=== PATIENT | male | born 1990 | race Caucasian/White ===

== ENCOUNTER 2019-02-12 12:56 | Emergency (ER) | payer OTHER ==
--- NOTE | 2019-02-12 13:02 | ER Report ---
History and Physical Time Seen By MD: 13:01 HPI/ROS CHIEF COMPLAINT: Right-sided abdominal pain HISTORY OF PRESENT ILLNESS: Patient is a 28-year-old male here with complaints of intermittent right sided and right lower abdominal pain has been present for the past several weeks. Patient reports worsening pain with defecation, denies alleviating factors, does admit to nausea without vomiting. Denies dark stools or blood stools. Patient does have a history of GERD currently on a proton pump inhibitor. Patient is afebrile, hemodynamically stable at time of evaluation. REVIEW OF SYSTEMS: Constitutional: No fever, no chills. Eyes: No discharge. ENT: No sore throat. Cardiovascular: No chest pain, no palpitations. Respiratory: No cough, no shortness of breath. Gastrointestinal: + right upper and lower abdominal pain, no vomiting, + nausea Genitourinary: No hematuria. Musculoskeletal: No back pain. Skin: No rashes. Neurological: No headache. Allergies: Coded Allergies: No Known Drug Allergies (Unverified , 02/12/19) Home Meds Reported Medications Amitriptyline Hcl (AMITRIPTYLINE HCL) 10 Mg Tablet, 10 MG PO QHS, #5 TAB 02/12/19 Pantoprazole Sodium (PANTOPRAZOLE SODIUM) 40 Mg Tablet.dr, 40 MG PO QDAY, TAB.SR 02/12/19 Constitutional Physical Exam General Appearance: The patient is alert, has no immediate need for airway protection and no signs of toxicity. Uncomfortable appearing Eyes: Pupils equal and round no pallor or injection. ENT, Mouth: Mucous membranes are moist. Respiratory: There are no retractions, lungs are clear to auscultation. Cardiovascular: Regular rate and rhythm. Gastrointestinal: + TTP of right abdomen without rebound or guarding Neurological: No focal deficits Skin: Warm and dry, no rashes. Musculoskeletal: Neck is supple non tender. Extremities are nontender, nonswollen and have full range of motion. DIFFERENTIAL DIAGNOSIS: After history and physical exam differential diagnosis was considered for abdominal pain including but not limited to appendicitis, cholecystitis, gastritis and urinary tract infection. Medical Decision Making Data Points Laboratory Hematology Test 02/12/19 13:06 02/12/19 13:17 Urine Color Yellow Urine Clarity Slightly-cloudy Urine pH 7.0 pH (4.8-9.5) Urine Specific Eunice 1.023 Urine Protein Negative mg/dL (NEGATIVE) Urine Glucose (UA) Negative mg/dL (NEGATIVE) Urine Ketones Negative mg/dL (NEGATIVE) Urine Blood Negative (NEGATIVE) Urine Nitrite Negative (NEGATIVE) Urine Bilirubin Negative (NEGATIVE) Urine Urobilinogen Negative mg/dL (0.2-1.9) Urine Leukocyte Esterase Negative (NEGATIVE) Urine RBC <1 /HPF (0-2/HPF) Urine WBC 1 /HPF (0-5/HPF) Urine Squamous Epithelial Cells None /LPF (</=FEW) Urine Bacteria Negative /HPF (NONE-FEW) Urine Mucus Few /HPF (NONE-FEW) Red Blood Count 5.77 M/uL (4.00-5.60) Mean Corpuscular Volume 89.5 fL (80.0-96.0) Mean Corpuscular Hemoglobin 31.0 pg (26.0-33.0) Mean Corpuscular Hemoglobin Concent 34.7 g/dL (32.0-36.0) Red Cell Distribution Width 12.8 % (11.5-14.5) Mean Platelet Volume 9.5 fL (7.2-11.1) Neutrophils (%) (Auto) 57.4 % (39.4-72.5) Lymphocytes (%) (Auto) 33.1 % (17.6-49.6) Monocytes (%) (Auto) 7.5 % (4.1-12.4) Eosinophils (%) (Auto) 1.2 % (0.4-6.7) Basophils (%) (Auto) 0.8 % (0.3-1.4) Nucleated RBC Relative Count (auto) 0.1 /100WBC Neutrophils # (Auto) 4.4 K/uL (2.0-7.4) Lymphocytes # (Auto) 2.5 K/uL (1.3-3.6) Monocytes # (Auto) 0.6 K/uL (0.3-1.0) Eosinophils # (Auto) 0.1 K/uL (0.0-0.5) Basophils # (Auto) 0.1 K/uL (0.0-0.1) Nucleated RBC Absolute Count (auto) 0.01 K/uL Prothrombin Time 13.6 seconds (12.0-14.4) Prothromb Time International Ratio 1.04 Activated Partial Thromboplast Time 30 seconds (23-35) Sodium Level 140 mmol/L (137-145) Potassium Level 3.6 mmol/L (3.5-5.0) Chloride Level 105 mmol/L (98-107) Carbon Dioxide Level 24 mmol/L (22-30) Blood Urea Nitrogen 13 mg/dl (9-21) Creatinine 1.20 mg/dl (0.66-1.25) Glomerular Filtration Rate Calc > 60.0 Random Glucose 135 mg/dl (75-110) Lactate 1.7 mmol/L (0.7-2.1) Calcium Level 9.7 mg/dl (8.4-10.2) Total Bilirubin 0.9 mg/dl (0.2-1.3) Aspartate Amino Transf (AST/SGOT) 35 U/L (0-35) Alanine Aminotransferase (ALT/SGPT) 97 U/L (0-56) Alkaline Phosphatase 67 U/L (0-126) C-Reactive Protein < 0.5 mg/dl (<1.0) Total Protein 7.7 g/dl (6.3-8.2) Albumin 4.7 g/dl (3.5-5.0) Lipase 98 U/L (23-300) Chemistry Test 02/12/19 13:06 02/12/19 13:17 Urine Color Yellow Urine Clarity Slightly-cloudy Urine pH 7.0 pH (4.8-9.5) Urine Specific Eunice 1.023 Urine Protein Negative mg/dL (NEGATIVE) Urine Glucose (UA) Negative mg/dL (NEGATIVE) Urine Ketones Negative mg/dL (NEGATIVE) Urine Blood Negative (NEGATIVE) Urine Nitrite Negative (NEGATIVE) Urine Bilirubin Negative (NEGATIVE) Urine Urobilinogen Negative mg/dL (0.2-1.9) Urine Leukocyte Esterase Negative (NEGATIVE) Urine RBC <1 /HPF (0-2/HPF) Urine WBC 1 /HPF (0-5/HPF) Urine Squamous Epithelial Cells None /LPF (</=FEW) Urine Bacteria Negative /HPF (NONE-FEW) Urine Mucus Few /HPF (NONE-FEW) White Blood Count 7.6 k/uL (4.5-11.0) Red Blood Count 5.77 M/uL (4.00-5.60) Hemoglobin 17.9 g/dL (14.0-18.0) Hematocrit 51.7 % (42.0-52.0) Mean Corpuscular Volume 89.5 fL (80.0-96.0) Mean Corpuscular Hemoglobin 31.0 pg (26.0-33.0) Mean Corpuscular Hemoglobin Concent 34.7 g/dL (32.0-36.0) Red Cell Distribution Width 12.8 % (11.5-14.5) Platelet Count 281 K/uL (150-450) Mean Platelet Volume 9.5 fL (7.2-11.1) Neutrophils (%) (Auto) 57.4 % (39.4-72.5) Lymphocytes (%) (Auto) 33.1 % (17.6-49.6) Monocytes (%) (Auto) 7.5 % (4.1-12.4) Eosinophils (%) (Auto) 1.2 % (0.4-6.7) Basophils (%) (Auto) 0.8 % (0.3-1.4) Nucleated RBC Relative Count (auto) 0.1 /100WBC Neutrophils # (Auto) 4.4 K/uL (2.0-7.4) Lymphocytes # (Auto) 2.5 K/uL (1.3-3.6) Monocytes # (Auto) 0.6 K/uL (0.3-1.0) Eosinophils # (Auto) 0.1 K/uL (0.0-0.5) Basophils # (Auto) 0.1 K/uL (0.0-0.1) Nucleated RBC Absolute Count (auto) 0.01 K/uL Prothrombin Time 13.6 seconds (12.0-14.4) Prothromb Time International Ratio 1.04 Activated Partial Thromboplast Time 30 seconds (23-35) Glomerular Filtration Rate Calc > 60.0 Lactate 1.7 mmol/L (0.7-2.1) Calcium Level 9.7 mg/dl (8.4-10.2) Total Bilirubin 0.9 mg/dl (0.2-1.3) Aspartate Amino Transf (AST/SGOT) 35 U/L (0-35) Alanine Aminotransferase (ALT/SGPT) 97 U/L (0-56) Alkaline Phosphatase 67 U/L (0-126) C-Reactive Protein < 0.5 mg/dl (<1.0) Total Protein 7.7 g/dl (6.3-8.2) Albumin 4.7 g/dl (3.5-5.0) Lipase 98 U/L (23-300) Coagulation Test 02/12/19 13:17 Prothrombin Time 13.6 seconds Prothromb Time International Ratio 1.04 Activated Partial Thromboplast Time 30 seconds Urinalysis Test 02/12/19 13:06 Urine Color Yellow Urine Clarity Slightly-cloudy Urine pH 7.0 pH (4.8-9.5) Urine Specific Eunice 1.023 Urine Protein Negative mg/dL (NEGATIVE) Urine Glucose (UA) Negative mg/dL (NEGATIVE) Urine Ketones Negative mg/dL (NEGATIVE) Urine Blood Negative (NEGATIVE) Urine Nitrite Negative (NEGATIVE) Urine Bilirubin Negative (NEGATIVE) Urine Urobilinogen Negative mg/dL (0.2-1.9) Urine Leukocyte Esterase Negative (NEGATIVE) Urine RBC <1 /HPF (0-2/HPF) Urine WBC 1 /HPF (0-5/HPF) Urine Squamous Epithelial Cells None /LPF (</=FEW) Urine Bacteria Negative /HPF (NONE-FEW) Urine Mucus Few /HPF (NONE-FEW) EKG/Imaging Imaging PATIENT NAME: Jani Amaral : 1990 MR: [id number] V: [id number] EXAM DATE: ORDERING PHYSICIAN: KRISHNA GRIFFIN TECHNOLOGIST: Location: [facility] [place] Patient: Jani Amaral : 1990 Visit/Account:[id number] Date of Sevice: 02/12/2019 EXAMINATION: CT abdomen with IV contrast CT pelvis with IV contrast HISTORY: Right-sided abdominal pain for three weeks. COMPARISON: None. TECHNIQUE: Axial images were taken through the abdomen and pelvis with intravenous contrast. Sagittal and coronal reformatted images are also submitted. CONTRAST: 75 mL of IV Isovue-370 One of the following dose optimization techniques was utilized in the performance of this exam: Automated exposure control; adjustment of the mA and/or kV according to the patient's size; or use of an iterative reconstruction technique. Specific details can be referenced in the facility's radiology CT exam operational policy. FINDINGS: Liver/biliary: Negative. Pancreas: Negative. Spleen: Negative. Adrenal glands: A 1.8 cm nodule in the right adrenal gland. Kidneys: A subcentimeter cyst in the mid left kidney. Pelvic structures: Negative. Bowel: The bowel is normal caliber without obvious focal wall thickening. The appendix is normal. Peritoneum/retroperitoneum/mesenteries: Negative. No intraperitoneal free air or free fluid. Vessels: Negative. Musculoskeletal/body wall: Mild disc degenerative changes in the lower lumbar spine. Lymph node assessment: Negative. Lower chest: Negative. IMPRESSION: No CT evidence of acute pathology in the abdomen or pelvis. An incidental 1.8 cm nodule in the right adrenal gland with indeterminate imagi ng features. Please see management recommendations below. MANAGEMENT OF INCIDENTAL ADRENAL MASSES Diagnostic Benign Imaging Features * Myelolipoma, no enhancement or calcification ? Benign, no follow-up * <10 HU, signal loss on fat suppressed or opposed-phase ? Benign adenoma, no follow-up Indeterminate Imaging Features >/= 4 cm * No Cancer Hx ? Consider resection * Cancer Hx ? Consider PET/CT or Bx if appropriate w/ Prior Imaging Stable >1 year ? Benign, no follow-up New or enlarging * No Cancer Hx: Consider follow-up adrenal CT or resection * Cancer Hx: Consider PET/CT or Bx w/out Prior Imaging and No Cancer Hx * 1-2 cm: Probably benign; Consider 12-month follow-up adrenal CT * >2 to <4 cm: Adrenal CT w/out Prior Imaging but Cancer Hx and Isolated Adrenal Mass * Adrenal CT Maximino Soto et al. Management of Incidental Adrenal Masses: A White Paper of the ACR Incidental Findings Committee. Journal of the [employer] [employer] 2017. [facility] ED Course/Re-evaluation ED Course Patient is a 28-year-old male here with complaints of right-sided abdominal pain which is been intermittent for past several weeks. Labs were found to be unremarkable with no leukocytosis, electrolytes are stable. CT imaging of the abdomen and pelvis showed no acute intra-abdominal findings however patient was notified that he had an incidental cyst on his adrenal gland which will need to be followed up in the future. Return precautions provided, close PCP follow-up recommended. Decision to Disposition Date: Feb 12, 2019 Decision to Disposition Time: 14:32 Depart Departure Latest Vital Signs Impression: Primary Impression: Abdominal pain Condition: Improved Disposition: HOME OR SELF-CARE Patient Instructions: Abdominal Pain (ED) Additional Instructions: Please drink plenty of water. You had moderate stool burden, consider taking stool softeners were MiraLAX. Please follow-up with your family doctor in the next 3-5 days. Please return promptly if you develop blood in the stools or urine, fevers, worsening abdominal pain, inability to keep down food or fluids. Please follow-up with your primary care provider in order to discuss possible need for follow-up imaging of the and incidental adrenal gland lesion. KRISHNA GRIFFIN DO Feb 12, 2019 13:01
[2019-02-12] MEDS ORDERED: AMIT-104 PO (13:13)
[2019-02-12] MEDS ORDERED: PANT40TA65 PO (13:13)
[2019-02-12] MEDS ORDERED: NS(*) 0.9% 1000 ML BAG 1,000 ML IV ONE (13:19)
[2019-02-12 13:27] LABS: PLATELET COUNT, AUTOMATED 281 K/uL (150-450)
[2019-02-12] MEDS ORDERED: IOPAMIDOL 76% 150 ML INFUS BTL 150 ML ONE (13:34)
[2019-02-12 13:41] LABS: INR 1.04
[2019-02-12 14:00] VITALS: BP 122/81
--- NOTE | 2019-02-12 14:30 | RADIOLOGY IMAGING REPORT ---
FACILITY: [facility] [place] PATIENT NAME: Jani Amaral : 1990 MR: [id number] V: [id number] EXAM DATE: ORDERING PHYSICIAN: KRISHNA GRIFFIN TECHNOLOGIST: Location: [facility] Patient: Jani Amaral : 1990 Visit/Account:[id number] Date of Sevice: 02/12/2019 EXAMINATION: CT abdomen with IV contrast CT pelvis with IV contrast HISTORY: Right-sided abdominal pain for three weeks. COMPARISON: None. TECHNIQUE: Axial images were taken through the abdomen and pelvis with intravenous contrast. Sagitt al and coronal reformatted images are also submitted. CONTRAST: 75 mL of IV Isovue-370 One of the following dose optimization techniques was utilized in the performance of this exam: Autom ated exposure control; adjustment of the mA and/or kV according to the patient's size; or use of an i terative reconstruction technique. Specific details can be referenced in the facility's radiology C T exam operational policy. FINDINGS: Liver/biliary: Negative. Pancreas: Negative. Spleen: Negative. Adrenal glands: A 1.8 cm nodule in the right adrenal gland. Kidneys: A subcentimeter cyst in the mid left kidney. Pelvic structures: Negative. Bowel: The bowel is normal caliber without obvious focal wall thickening. The appendix is normal. Peritoneum/retroperitoneum/mesenteries: Negative. No intraperitoneal free air or free fluid. Vessels: Negative. Musculoskeletal/body wall: Mild disc degenerative changes in the lower lumbar spine. Lymph node assessment: Negative. Lower chest: Negative. IMPRESSION: No CT evidence of acute pathology in the abdomen or pelvis. An incidental 1.8 cm nodule in the right adrenal gland with indeterminate imaging features. Please s ee management recommendations below. MANAGEMENT OF INCIDENTAL ADRENAL MASSES Diagnostic Benign Imaging Features * Myelolipoma, no enhancement or calcification ? Benign, no follow-up * <10 HU, signal loss on fat suppressed or opposed-phase ? Benign adenoma, no follow-up Indeterminate Imaging Features >/= 4 cm * No Cancer Hx ? Consider resection * Cancer Hx ? Consider PET/CT or Bx if appropriate w/ Prior Imaging Stable >1 year ? Benign, no follow-up New or enlarging * No Cancer Hx: Consider follow-up adrenal CT or resection * Cancer Hx: Consider PET/CT or Bx w/out Prior Imaging and No Cancer Hx * 1-2 cm: Probably benign; Consider 12-month follow-up adrenal CT * >2 to <4 cm: Adrenal CT w/out Prior Imaging but Cancer Hx and Isolated Adrenal Mass * Adrenal CT Maximino Soto et al. Management of Incidental Adrenal Masses: A White Paper of the ACR Inci dental Findings Committee. Journal of the [place] [employer] 2017. [facility] Report Dictated By: Jesús Lorenzo MD at 02/12/2019 2:03 PM Report E-Signed By: Jesús Lorenzo MD at 02/12/2019 2:25 PM WSN:[email or web address]
== END 2019-02-12 14:46 | disposition home or self-care (01) ==
LOC: ER 13:21
DX: R10.31 Right lower quadrant pain (principal)
CPT/HCPCS: 74177; 81001; 83605; 83690; 85025; 85610; 85730; 86140; 96360; 99284; J7030; Q9967; 82040; 82247; 82310; 82374; 82435; 82565; 82947; 84075; 84132; 84155; 84295; 84450; 84460; 84520

== ENCOUNTER 2019-02-21 12:23 | Emergency (ER) | payer OTHER ==
[~2019-02-21 12:23] MED LIST: AMIT-104 PO; PANT40TA65 PO
--- NOTE | 2019-02-21 12:32 | ER Report ---
History and Physical Time Seen By MD: 12:32 HPI/ROS CHIEF COMPLAINT: Coughing up blood HISTORY OF PRESENT ILLNESS: This is a 28-year-old male presents emergency department for coughing up blood. Patient states that he has had pain on the right side of his throat for the last one to 2 years, has seen several different providers, placed on antibiotics and most recently prednisone. Patient states that he has intermittent episodes after yelling where he cough up blood, not large quantities he notes that just red streaks in his phlegm. He does state that the right side of his throat is sore and it feels as though he is "breathing through a straw". Patient states he does have Adams's esophagus, is not a heavy drinker in fact has not had anything to drink over the last 4-6 months. He states that he has a family history of Adams's esophagus. He does not smoke. Also has a history of acid reflux. He denies fevers or chills. No nausea or vomiting. Has had diarrhea recently took a stool softener and then was on antibiotics. REVIEW OF SYSTEMS: Constitutional: No fever, no chills. Eyes: No discharge. ENT: As above. Cardiovascular: No chest pain, no palpitations. Respiratory: No cough, no shortness of breath. Gastrointestinal: No abdominal pain, no vomiting. Genitourinary: No hematuria. Musculoskeletal: No back pain. Skin: No rashes. Neurological: No headache. Allergies: Coded Allergies: No Known Drug Allergies (Unverified , 02/12/19) Home Meds Reported Medications Amitriptyline Hcl (AMITRIPTYLINE HCL) 10 Mg Tablet, 10 MG PO QHS, #5 TAB 02/12/19 Pantoprazole Sodium (PANTOPRAZOLE SODIUM) 40 Mg Tablet.dr, 40 MG PO QDAY, TAB.SR 02/12/19 Past Medical/Surgical History The patient has a past medical and surgical history of Adams's esophagus, removal of benign tumor on leg, precancerous small removed from left forearm. Reviewed Nurses Notes: Yes Hx Substance Use Disorder: No Hx Alcohol Use: No Constitutional Vital Sign - Last 24 Hours 02/21/19 02/21/19 02/21/19 02/21/19 12:29 12:30 13:00 13:30 Temp 98.5 Pulse 121 116 105 104 Resp 16 B/P (MAP) 144/100 Pulse Ox 95 96 94 91 O2 Delivery Room Air 02/21/19 02/21/19 14:00 14:24 Pulse 100 B/P (MAP) 122/78 (93) Pulse Ox 94 Physical Exam General Appearance: The patient is alert, has no immediate need for airway protection and no signs of toxicity. Eyes: Pupils equal and round no pallor or injection. ENT, Mouth: Mucous membranes are moist. Respiratory: There are no retractions, lungs are clear to auscultation. Cardiovascular: Regular rate and rhythm. No murmurs, clicks or rubs. Gastrointestinal: Abdomen is soft and non tender, no masses, bowel sounds normal. Neurological: Alert and oriented 4. Moving all her studies. Following all commands. No focal neuro deficits. Skin: Warm and dry, no rashes. Musculoskeletal: Neck is supple non tender. Extremities are nontender, nonswollen and have full range of motion. DIFFERENTIAL DIAGNOSIS: After history and physical exam differential diagnosis was considered for Adams's esophagus, laryngospasm, tumor, thyroid cancer, strep throat, mono. Medical Decision Making EKG/Imaging Imaging PATIENT NAME: Jani Amaral : 1990 MR: [id number] V: [id number] EXAM DATE: ORDERING PHYSICIAN: HIRAM LAING TECHNOLOGIST: Location: [facility] Patient: Jani Amaral : 1990 Visit/Account:[id number] Date of Sevice: 02/21/2019 EXAMINATION: CT neck with IV contrast HISTORY: Evaluate for mass on the right TECHNIQUE: CT was obtained through the neck following IV contrast admin istration. Sagittal and coronal reformatted images were generated. 75 mL of IV Isovue-370 injected. One of the following dose optimization techniques was utilized in the performance of this exam: automated exposure control; adjustment of the mA and/or kV according to patient size; or use of iterative reconstruction technique. Specific details can be referenced in the facility's radiology CT exam operational policy. COMPARISON: None. FINDINGS: Parotid/submandibular and thyroid glands: Normal. The BB marker localizing the site of concern in the right upper neck is positioned just inferior to the right submandibular gland. Pharyngeal and retropharyngeal soft tissues: Normal. Oral cavity and oil well shooter space soft tissues: Normal. Larynx/glottis and airway: Normal. Lymph nodes: Normal. Vessels: No significant finding. Visualized orbits / brain: No significant finding. Upper chest: Normal. Bones/sinuses/mastoid air cells: Normal. IMPRESSION: Normal neck CT without mass or adenopathy. No acute finding. The BB marker localizing the site of concern is positioned just inferior to the right submandibular gland which appears normal. Report Dictated By: Radames Jean MD at 02/21/2019 1:51 PM Report E-Signed By: Radames Jean MD at 02/21/2019 1:56 PM WSN:[email or web address] ED Course/Re-evaluation Clinical Indication for ER IV: IV Access ED Course The patient was admitted to room. A history and physical were obtained. Differential diagnoses were considered. A CT of the neck was negative for any acute pathology, specifically no mass in the neck. I did review the results with the patient. This patient had very mild hemoptysis, I did recommend following up with ENT as scheduled next week, also following up with Dr. Melvin for reevaluation of his hernia and possible repeat upper endoscopy. Patient had upper done a couple of months ago on the [facility]. Has since then relocated to [place]. Patient has expressed understanding, was agreeable with this plan of care and discharged home. Patient states he did feel relieved there was no identifiable mass in his neck. Decision to Disposition Date: February 21, 2019 Decision to Disposition Time: 14:18 Depart Departure Latest Vital Signs Vital Signs Date Time Temp Pulse Resp B/P (MAP) Pulse Ox O2 Delivery O2 Flow Rate FiO2 02/21/19 14:24 122/78 (93) 02/21/19 14:00 100 94 02/21/19 12:29 98.5 16 Room Air Impression: Primary Impression: Hemoptysis Condition: Improved Disposition: HOME OR SELF-CARE Referrals: JOSAFAT MELVIN JR,DANIKA Carlson MD Patient Instructions: Hemoptysis (ED) Additional Instructions: There were no concerning findings on the CT of your neck today, please keep your appointment scheduled with Dr. Canas's office next week. Please follow-up with Dr. Melvin, the general surgeon for possible upper endoscopy and discussion on the hiatal hernia. Please avoid things such as ibuprofen or NSAIDs. Continue taking her regular medications. Take Tylenol as needed for pain. Be sure to drink plenty of water. Get plenty of rest. Return to the ER for any concerns worsening symptoms. HIRAM LIANG-BC February 21, 2019 12:32
[2019-02-21] MEDS ORDERED: IOPAMIDOL 76% 150 ML INFUS BTL 150 ML ONE (13:22)
--- NOTE | 2019-02-21 14:01 | RADIOLOGY IMAGING REPORT ---
FACILITY: [facility] [place] PATIENT NAME: Jani Amaral : 1990 MR: [id number] V: [id number] EXAM DATE: ORDERING PHYSICIAN: HIRAM LIANG TECHNOLOGIST: Location: [facility] [place] Patient: Jani Amaral : 1990 Visit/Account:[id number] Date of Sevice: 02/21/2019 EXAMINATION: CT neck with IV contrast HISTORY: Evaluate for mass on the right TECHNIQUE: CT was obtained through the neck following IV contrast administration. Sagittal and co albino reformatted images were generated. 75 mL of IV Isovue-370 injected. One of the following dose optimization techniques was utilized in the performance of this exam: autom ated exposure control; adjustment of the mA and/or kV according to patient size; or use of iterative reconstruction technique. Specific details can be referenced in the facility's radiology CT exam ope rational policy. COMPARISON: None. FINDINGS: Parotid/submandibular and thyroid glands: Normal. The BB marker localizing the site of concern in th e right upper neck is positioned just inferior to the right submandibular gland. Pharyngeal and retropharyngeal soft tissues: Normal. Oral cavity and subassembly supervisor space soft tissues: Normal. Larynx/glottis and airway: Normal. Lymph nodes: Normal. Vessels: No significant finding. Visualized orbits / brain: No significant finding. Upper chest: Normal. Bones/sinuses/mastoid air cells: Normal. IMPRESSION: Normal neck CT without mass or adenopathy. No acute finding. The BB marker localizing the site of concern is positioned just inferior to the right submandibular g land which appears normal. Report Dictated By: Radames Jean MD at 02/21/2019 1:51 PM Report E-Signed By: Radames Jean MD at 02/21/2019 1:56 PM WSN:[email or web address]
[2019-02-21 14:24] VITALS: BP 122/78
[2019-02-25] MEDS ORDERED: CEFPR500PT PO (11:00)
[2019-02-25] MEDS ORDERED: METH4TAB66 PO (11:00)
== END 2019-02-21 14:23 | disposition home or self-care (01) ==
LOC: ER 12:29
DX: R04.2 Hemoptysis (principal)
CPT/HCPCS: 70491; 99284; Q9967

== ENCOUNTER 2019-03-13 15:00 | Emergency (ER) | payer MEDICAID ==
[~2019-03-13 15:00] MED LIST changes: +CEFPR500PT PO; +METH4TAB66 PO
[2019-03-13] MEDS ORDERED: CIPR-344 PO (15:04)
--- NOTE | 2019-03-13 15:10 | ER Report ---
History and Physical Time Seen By MD: 15:10 Hx. of Stated Complaint: PT HAS RLQ PAININTERMITTANTLY GETTING GRAD WORSE FOR A FEW WEEKS. SCHEDULED FOR UGI ABND COLONOSCOPY HPI/ROS CHIEF COMPLAINT: Right-sided groin pain and pain to the testicle HISTORY OF PRESENT ILLNESS: 28-year-old male patient presents to emergency room with complaint of right-sided groin pain and pain into the testicle. Patient states that seems to start in the right inguinal area, then radiates down to the testicle. States his testicle is tender and has discomfort with palpation or walking in the testicle brushes up against his leg. Patient denies any fevers, chills, nausea, vomiting or diarrhea. He does have a history of epididymitis. States he is not taking any thing for the pain. Patient states that seemed to start a couple weeks ago and has progressively worsened since then. Patient states that he has pain down by his tailbone, but this does not seem to be related. He is scheduled for an upper endoscopy as well as colonoscopy next week. REVIEW OF SYSTEMS: Respiratory: No cough, no dyspnea. Cardiovascular: No chest pain, no palpitations. Gastrointestinal: No vomiting, no abdominal pain. Musculoskeletal: No back pain. Allergies: Coded Allergies: No Known Drug Allergies (Unverified , 02/25/19) Home Meds Active Scripts Hydrocodone Bit/Acetaminophen (HYDROCODON-ACETAMINOPHEN 5-325) 1 Each Tablet, 1 EACH PO Q4-6H PRN for PAIN, #8 TAB Prov:VENICE BEEP 03/13/19 Sulfamethoxazole/Trimet 800-160 Mg Tab (BACTRIM DS TABLET) 1 Each Tablet, 1 TAB PO Q12H, #20 TAB Prov:VENICE BEE 03/13/19 Ciprofloxacin Hcl 500 Mg Tab (CIPRO 500 MG TAB) 500 Mg Tablet, 500 MG PO BID for 7 Days, #14 TAB 0 Refills Prov:CINTIA LOPEZ PA-C 03/13/19 Methylprednisolone (METHYLPREDNISOLONE) 4 Mg Tab.ds.pk, 4 MG PO DIRECTED for 6 Days, #1 PACK 0 Refills Prov:CINTIA LOPEZ PA-C 02/25/19 Cefprozil (CEFPROZIL) 500 Mg Tab, 500 MG PO BID for 14 Days, #28 TAB 0 Refills Prov:CINTIA LOPEZ PA-C 02/25/19 Reported Medications Amitriptyline Hcl (AMITRIPTYLINE HCL) 10 Mg Tablet, 10 MG PO QHS, #5 TAB 02/12/19 Pantoprazole Sodium (PANTOPRAZOLE SODIUM) 40 Mg Tablet.dr, 40 MG PO QDAY, TAB.SR 02/12/19 Past Medical/Surgical History Patient has a past medical history of Adams's esophagitis, reflux, prostate cancer. Patient has a surgical history of removal of benign leg tumor, removal of precancerous mole from left forearm. Patient has a family medical history of cancer. Reviewed Nurses Notes: Yes Hx Substance Use Disorder: No Hx Alcohol Use: No Constitutional Vital Sign - Last 24 Hours 03/13/19 03/13/19 03/13/19 03/13/19 15:03 15:08 15:30 15:35 Temp 98.3 Pulse 92 88 85 Resp 20 B/P (MAP) 137/96 137/96 (110) 127/82 (97) Pulse Ox 94 93 92 O2 Delivery Room Air 03/13/19 03/13/19 03/13/19 03/13/19 16:00 16:05 16:30 16:35 Pulse 89 77 B/P (MAP) 110/71 (84) 129/77 (94) Pulse Ox 98 92 03/13/19 03/13/19 03/13/19 03/13/19 17:00 17:10 17:30 17:40 Pulse 83 75 B/P (MAP) 143/95 (111) 140/83 (102) Pulse Ox 94 94 03/13/19 03/13/19 03/13/19 18:00 18:10 18:30 Pulse 87 B/P (MAP) 133/75 (94) 144/79 (100) Pulse Ox 96 Physical Exam General Appearance: The patient is alert, has no immediate need for airway protection and no current signs of toxicity. Respiratory: Chest is non tender, lungs are clear to auscultation. Cardiac: regular rate and rhythm Gastrointestinal: Abdomen is soft and non tender, no masses, bowel sounds normal. Musculoskeletal: Neck: Neck is supple and non tender. Extremities have full range of motion and are non tender. Skin: No rashes or lesions. : Patient does have tenderness to the right testicle, seems worse along the epididymis. Patient does have some enlarged lymph nodes in the right inguinal area. DIFFERENTIAL DIAGNOSIS: After history and physical exam differential diagnosis was considered for epididymitis, testicular torsion. Medical Decision Making Data Points Result Diagram: 03/13/19 1538 03/13/19 1538 Laboratory Hematology Test 03/13/19 15:38 Red Blood Count 5.73 M/uL (4.00-5.60) Mean Corpuscular Volume 90.7 fL (80.0-96.0) Mean Corpuscular Hemoglobin 31.0 pg (26.0-33.0) Mean Corpuscular Hemoglobin Concent 34.2 g/dL (32.0-36.0) Red Cell Distribution Width 12.6 % (11.5-14.5) Mean Platelet Volume 10.0 fL (7.2-11.1) Neutrophils (%) (Auto) 63.8 % (39.4-72.5) Lymphocytes (%) (Auto) 25.3 % (17.6-49.6) Monocytes (%) (Auto) 8.4 % (4.1-12.4) Eosinophils (%) (Auto) 1.8 % (0.4-6.7) Basophils (%) (Auto) 0.7 % (0.3-1.4) Nucleated RBC Relative Count (auto) 0.0 /100WBC Neutrophils # (Auto) 5.8 K/uL (2.0-7.4) Lymphocytes # (Auto) 2.3 K/uL (1.3-3.6) Monocytes # (Auto) 0.8 K/uL (0.3-1.0) Eosinophils # (Auto) 0.2 K/uL (0.0-0.5) Basophils # (Auto) 0.1 K/uL (0.0-0.1) Nucleated RBC Absolute Count (auto) 0.00 K/uL Sodium Level 136 mmol/L (137-145) Potassium Level 3.8 mmol/L (3.5-5.0) Chloride Level 106 mmol/L (98-107) Carbon Dioxide Level 22 mmol/L (22-30) Blood Urea Nitrogen 14 mg/dl (9-21) Creatinine 1.10 mg/dl (0.66-1.25) Glomerular Filtration Rate Calc > 60.0 Random Glucose 105 mg/dl (75-110) Calcium Level 9.2 mg/dl (8.4-10.2) Total Bilirubin 0.5 mg/dl (0.2-1.3) Aspartate Amino Transf (AST/SGOT) 28 U/L (0-35) Alanine Aminotransferase (ALT/SGPT) 62 U/L (0-56) Alkaline Phosphatase 77 U/L (0-126) C-Reactive Protein < 0.5 mg/dl (<1.0) Total Protein 7.4 g/dl (6.3-8.2) Albumin 4.6 g/dl (3.5-5.0) Chemistry Test 03/13/19 15:38 White Blood Count 9.1 k/uL (4.5-11.0) Red Blood Count 5.73 M/uL (4.00-5.60) Hemoglobin 17.7 g/dL (14.0-18.0) Hematocrit 51.9 % (42.0-52.0) Mean Corpuscular Volume 90.7 fL (80.0-96.0) Mean Corpuscular Hemoglobin 31.0 pg (26.0-33.0) Mean Corpuscular Hemoglobin Concent 34.2 g/dL (32.0-36.0) Red Cell Distribution Width 12.6 % (11.5-14.5) Platelet Count 268 K/uL (150-450) Mean Platelet Volume 10.0 fL (7.2-11.1) Neutrophils (%) (Auto) 63.8 % (39.4-72.5) Lymphocytes (%) (Auto) 25.3 % (17.6-49.6) Monocytes (%) (Auto) 8.4 % (4.1-12.4) Eosinophils (%) (Auto) 1.8 % (0.4-6.7) Basophils (%) (Auto) 0.7 % (0.3-1.4) Nucleated RBC Relative Count (auto) 0.0 /100WBC Neutrophils # (Auto) 5.8 K/uL (2.0-7.4) Lymphocytes # (Auto) 2.3 K/uL (1.3-3.6) Monocytes # (Auto) 0.8 K/uL (0.3-1.0) Eosinophils # (Auto) 0.2 K/uL (0.0-0.5) Basophils # (Auto) 0.1 K/uL (0.0-0.1) Nucleated RBC Absolute Count (auto) 0.00 K/uL Glomerular Filtration Rate Calc > 60.0 Calcium Level 9.2 mg/dl (8.4-10.2) Total Bilirubin 0.5 mg/dl (0.2-1.3) Aspartate Amino Transf (AST/SGOT) 28 U/L (0-35) Alanine Aminotransferase (ALT/SGPT) 62 U/L (0-56) Alkaline Phosphatase 77 U/L (0-126) C-Reactive Protein < 0.5 mg/dl (<1.0) Total Protein 7.4 g/dl (6.3-8.2) Albumin 4.6 g/dl (3.5-5.0) EKG/Imaging Imaging SCROTAL ULTRASOUND INDICATION: Right testicle and right groin pain. COMPARISON: None available. FINDINGS: Right testicle measures 4.9 x 2.6 x 3.7 cm in cc, AP, and transverse dimensions respectively. There is normal arterial and venous blood flow. No evidence of hydrocele. No varicocele identified. The right epididymal head measures 0.6 cm. There are a few scattered testicular microliths. There are a few scattered lymph nodes seen within the right groin region. These nodes appear somewhat elongated but measure less than a centimeter in short axis. These nodes have fatty patrice. No suspicious features sonographically. Left testicle measures 5.3 x 2.0 x 3.7 cm in cc, AP, and transverse dimensions respectively. There is normal arterial and venous blood flow. No evidence of hydrocele. No varicocele identified. The left epididymal head measures 0.9 cm. The bilateral testicles appear homogenous in echogenicity. IMPRESSION: 1. Scattered right testicular microliths with an otherwise normal-appearing right testicle. Consider follow-up imaging in 12 months. 2. Normal sonographic appearance of the left testicle. 3. Scattered nonspecific lymph nodes within the right groin in the region of patient symptoms. Report Dictated By: Darci Pelayo at 03/13/2019 6:25 PM Report E-Signed By: Darci Pelayo at 03/13/2019 6:32 PM ED Course/Re-evaluation ED Course Patient was admitted to an exam room, history and physical were obtained. Differential diagnoses were considered. On examination patient had tenderness in the right inguinal canal, as well as some tenderness to the right testicle. An IV was started, CBC, CMP, were done. An ultrasound of the testicles were also performed. There is no abnormality noted on the lab work. On the ultrasound they did note some calcifications. The recommendation was to follow-up for repeat ultrasound in one year. They did note some enlarged lymph nodes as well the righ t inguinal canal. Is my belief that the patient likely has a epididymitis. Patient has a history of this, with a similar presentation which improved with antibiotics. We will go ahead and treat him with Bactrim, as he's been in a monogamous relationship for the past 4 years. He is to return to emergency room if condition worsens. Patient verbalized understanding and agreement with plan. Decision to Disposition Date: March 13, 2019 Decision to Disposition Time: 18:22 Depart Departure Latest Vital Signs Vital Signs Date Time Temp Pulse Resp B/P (MAP) Pulse Ox O2 Delivery O2 Flow Rate FiO2 03/13/19 18:30 144/79 (100) 03/13/19 18:10 87 96 03/13/19 15:03 98.3 20 Room Air Impression: Primary Impression: Epididymitis Condition: Improved Disposition: HOME OR SELF-CARE New Scripts Hydrocodone Bit/Acetaminophen (HYDROCODON-ACETAMINOPHEN 5-325) 1 Each Tablet 1 EACH PO Q4-6H PRN for PAIN, #8 TAB Prov: VENICE BEE 03/13/19 Sulfamethoxazole/Trimet 800-160 Mg Tab (BACTRIM DS TABLET) 1 Each Tablet 1 TAB PO Q12H, #20 TAB Prov: VENICE BEE 03/13/19 Patient Instructions: Epididymitis (ED) Additional Instructions: Increase fluid intake. Get plenty of rest. Follow up with your primary care provider in the next week. Take the medication as prescribed. Talk with Dr. Melvin's office and see if they can move up the colonoscopy. Get plenty of rest. VENICE BEE March 13, 2019 15:10
[2019-03-13] MEDS ORDERED: NS(*) 0.9% 1000 ML BAG 1,000 ML IV ONE (15:25)
[2019-03-13 15:56] LABS: PLATELET COUNT, AUTOMATED 268 K/uL (150-450)
[2019-03-13] MEDS ORDERED: KETOROLAC 15 MG/ML VIAL IVP ONE (16:40)
[2019-03-13] MEDS ORDERED: HYDR-385 PO (18:21)
[2019-03-13] MEDS ORDERED: SULF-198 PO (18:21)
[2019-03-13 18:30] VITALS: BP 144/79
--- NOTE | 2019-03-13 18:37 | RADIOLOGY IMAGING REPORT ---
FACILITY: PATIENT NAME: Jani Amaral : 1990 MR: [id number] V: [id number] EXAM DATE: ORDERING PHYSICIAN: VENICE BEE [place]CHN[place] [facility] [place] Am[place] : 1990 Visit/Account:[id number] Date of Sevice: 03/13/2019 SCROTAL ULTRASOUND INDICATION: Right testicle and right groin pain. COMPARISON: None available. FINDINGS: Right testicle measures 4.9 x 2.6 x 3.7 cm in cc, AP, and transverse dimensions respectively. There is normal arterial and venous blood flow. No evidence of hydrocele. No varicocele identified. The right epididymal head measures 0.6 cm. There are a few scattered testicular microliths. There are a few scattered lymph nodes seen within the right groin region. These nodes appear somewhat elongated but measure less than a centimeter in short axis. These nodes have fatty patrice. No suspicio us features sonographically. Left testicle measures 5.3 x 2.0 x 3.7 cm in cc, AP, and transverse dimensions respectively. There is normal arterial and venous blood flow. No evidence of hydrocele. No varicocele identified. The left epididymal head measures 0.9 cm. The bilateral testicles appear homogenous in echogenicity. IMPRESSION: 1. Scattered right testicular microliths with an otherwise normal-appearing right testicle. Consider follow-up imaging in 12 months. 2. Normal sonographic appearance of the left testicle. 3. Scattered nonspecific lymph nodes within the right groin in the region of patient symptoms. Report Dictated By: Darci Pelayo at 03/13/2019 6:25 PM Report E-Signed By: Darci Pelayo at 03/13/2019 6:32 PM [id number]
== END 2019-03-13 18:41 | disposition home or self-care (01) ==
LOC: ER 15:05
DX: N45.1 Epididymitis (principal)
CPT/HCPCS: 76870; 85025; 86140; 96361; 96374; 99284; J1885; J7030; 82040; 82247; 82310; 82374; 82435; 82565; 82947; 84075; 84132; 84155; 84295; 84450; 84460; 84520

== ENCOUNTER 2019-03-28 00:35 | Day surgery (SDC) | payer MEDICAID, OTHER ==
[~2019-03-28] VITALS: Ht 188 cm; Wt 93.0 kg
[~2019-03-28 00:35] MED LIST changes: +CIPR-344 PO; +HYDR-385 PO; +OMEP-126 PO; +SULF-198 PO
[2019-03-28] MEDS ORDERED: PROPOFOL EMUL(*) 10MG/ML 20 ML 20 ML ONE ×3 (07:12→13:50)
[2019-03-28] MEDS ORDERED: LIDOCAINE/SOD BICARB 8.4% SYR ID ONE (09:55)
[2019-03-28] MEDS ORDERED: NORMOSOL R SOLN(*) 1000 ML BAG 1,000 ML IV PRN (09:55)
[2019-03-28 10:59] VITALS: BP 152/95
[2019-03-28 13:56] VITALS: BP 100/71
--- NOTE | 2019-03-28 14:04 | NUR ---
1356 SBAR REPORT WAS RECEIVED FROM DR. RENTERIA AND JUAN JASSO. PATIENT IS IN A L. LATERAL POSITION. HE IS DROWSY BUT AROUSABLE. DENIES ANY PAIN OR NAUSEA. HE ARRIVED ON 3 LITERS HIGH FLOW O2. BOWEL SOUNDS ARE HYPERACTIVE. SPOUSE IN ROOM WITH PATIENT.
[2019-03-28 14:05] VITALS: BP 108/72
--- NOTE | 2019-03-28 14:09 | Short(Outpt) Discharge Summary ---
Discharge Summary Reason for Hosp/Final Diag: (1) Adams's esophagus Hospital Course & Plan: pt presented for egd and colonoscopy. he tolerated the procedures well. he will be discharged home when criteria met. (2) Blood per rectum Departure Discharge to: Home Discharge Instructions Home Meds Active Scripts Sulfamethoxazole/Trimet 800-160 Mg Tab (BACTRIM DS TABLET) 1 Each Tablet, 1 TAB PO Q12H, #20 TAB Prov:VENICE BEEP 03/13/19 Reported Medications Omeprazole (OMEPRAZOLE) 20 Mg Capsule.dr, 1 CAP PO HS, CAP 03/25/19 Pantoprazole Sodium (PANTOPRAZOLE SODIUM) 40 Mg Tablet.dr, 40 MG PO QDAY, TAB.SR 02/12/19 Discontinued Reported Medications Amitriptyline Hcl (AMITRIPTYLINE HCL) 10 Mg Tablet, 10 MG PO QHS, #5 TAB 02/12/19 Discontinued Scripts Hydrocodone Bit/Acetaminophen (HYDROCODON-ACETAMINOPHEN 5-325) 1 Each Tablet, 1 EACH PO Q4-6H PRN for PAIN, #8 TAB Prov:VENICE BEE [facility] 03/13/19 Ciprofloxacin Hcl 500 Mg Tab (CIPRO 500 MG TAB) 500 Mg Tablet, 500 MG PO BID for 7 Days, #14 TAB 0 Refills Prov:CINTIA LOPEZ PA-C 03/13/19 Methylprednisolone (METHYLPREDNISOLONE) 4 Mg Tab.ds.pk, 4 MG PO DIRECTED for 6 Days, #1 PACK 0 Refills Prov:CINTIA LOPEZ PA-C 02/25/19 Cefprozil (CEFPROZIL) 500 Mg Tab, 500 MG PO BID for 14 Days, #28 TAB 0 Refills Prov:CINTIA OLPEZ PA-C 02/25/19 Diet: Regular Activity: As Tolerated Special Instructions: we will call you in 10 days with biopsy results JOSAFAT MOORE Mar 28, 2019 14:09
--- NOTE | 2019-03-28 14:27 | NUR ---
1420 PATIENT WAS MOVED TO ROOM AIR. HE IS MORE ALERT AT THIS TIME 1426 PATIENT BEGAN DRINKING WATER AND EATING PUDDING. HE IS TOLERATING THIS WELL.
[2019-03-28 14:30] VITALS: BP 125/80
[2019-03-28 15:03] VITALS: BP 113/79
[2019-03-28 15:04] VITALS: BP 130/74
--- NOTE | 2019-03-28 15:20 | NUR ---
1510 PATIENT FINISHED GETTING DRESSED. 1515 IV WAS DC'D WITH CATH INTACT 1520 PATIENT WAS TAKEN AND WAS AMBULATORY ON DISCHARGE. HE DENIES ANY PAIN OR NAUSEA. HE IS ROOM AIR. HE STATES HE FEELS GREAT. SEE DISCHARGE ASSESSMENT.
== END 2019-03-28 15:20 | disposition home or self-care (01) ==
LOC: OR 00:35
PROVIDERS: ATTEND Surgery
DX: D12.8 Benign neoplasm of rectum (principal); K29.70 Gastritis, unspecified, without bleeding
CPT/HCPCS: 88305; 88313; 88342; J2704

== ENCOUNTER → 2019-04-16 | Outpatient (CLI) | payer MEDICAID ==
--- NOTE | 2019-04-16 15:38 | RADIOLOGY IMAGING REPORT ---
FACILITY: [facility] PATIENT NAME: Jani Amaral : 1990 MR: [id number] V: [id number] EXAM DATE: ORDERING PHYSICIAN: CINTIA LOPEZ TECHNOLOG[place]: [place] [facility] [place] Jani Amaral : 1990 Visit/Account:[id number] Date of Sevice: 04/16/2019 CT SINUS W/O CON COMPARISONS: None ADDITIONAL PERTINENT HISTORY: Chronic sinusitis TECHNIQUE: Multiple axial images were obtained through the paranasal sinuses with coronal and sagitta l reformatted images. No IV contrast was administered. One of the following dose optimization techni ques was utilized in the performance of this exam: Automated exposure control; adjustment of the mA a nd/or kV according to the patient's size; or use of an iterative reconstruction technique. Specific details can be referenced in the facility's radiology CT exam operational policy. FINDINGS: Maxillary sinuses: Negative. Frontal sinuses: Negative. Ethmoid air cells: Negative. Sphenoid sinuses:Negative. Nasal septum: Moderate nasal septal deviation to the right.. Drainage pathways: Patent Paranasal variance: Large bilateral Erika cells without inflammatory change. Medial orbital gage, cribriform plate, and orbital floors: Negative. Visualized bony skull base Negative. Visualized intracranial contents: Negative. Orbits and surrounding soft tissues: Negative. IMPRESSION: 1. Moderate nasal septal deviation to the right. 2. Prominent bilateral Erika cells without inflammatory change. Report Dictated By: Leo Shannon MD at 04/16/2019 3:30 PM Report E-Signed By: Leo Shannon MD at 04/16/2019 3:32 PM WSN:[id number]
== END ==
LOC: CT 01:26
PROVIDERS: ATTEND Physician Assistant
DX: J32.9 Chronic sinusitis, unspecified (principal)
CPT/HCPCS: 70486

== ENCOUNTER 2019-05-21 15:31 | Emergency (ER) | payer MEDICAID ==
[2019-05-21] MEDS ORDERED: KETOROLAC 15 MG/ML VIAL IVP ONE (16:10)
--- NOTE | 2019-05-21 16:25 | ER Report ---
History and Physical Time Seen By MD: 15:45 Hx. of Stated Complaint: BILAT GROIN PAIN FOR MONTHS, BUT WORSENING. UROLOGIST CONCERNED ABOUT BILAT HERNIAS. HPI/ROS CHIEF COMPLAINT: bilateral groin pain x months HISTORY OF PRESENT ILLNESS: The patient is a 28 yo male who presents with bilateral groin pain that has been ongoing and worsening for several months, worse on the right side. The pain is usually a dull, pulling sensation that improves when laying flat, worsens with movement/bending. Currently the pain is 1/10 while lying in bed, and significantly increases when he sits up. Mentions the pain occasionally radiates from the right groin to the right flank. Patient reports he was treated for epididymitis and completed a 10 day course of abx which did not improve his symptoms. He saw a urologist, who advised the patient to try ice packs, NSAIDs and a different abx which did not help. The patient reports that the urologist suggested that he may have bilateral inguinal hernias. He had an abdominal CT in January, which was negative. His only medication is Alieve for pain, which provides minimal relief. REVIEW OF SYSTEMS: Constitutional: No fever, no chills. Eyes: No discharge. ENT: No sore throat. Cardiovascular: No chest pain, no palpitations. Respiratory: admits to cough, no shortness of breath. Gastrointestinal: No abdominal pain, no nausea/vomiting. Genitourinary: No hematuria. Musculoskeletal: intermittent right flank pain Skin: No rashes. Neurological: No headache. Allergies: Coded Allergies: Sulfa (Sulfonamide Antibiotics) (Verified Allergy, Unknown, 04/14/19) Home Meds Active Scripts Hydrocodone Bit/Acetaminophen (HYDROCODON-ACETAMINOPHEN 5-325) 1 Each Tablet, 1 EACH PO Q4H for PAIN, #12 TAB 0 Refills Prov:FLORENCIA IZQUIERDO MD 05/21/19 Discontinued Reported Medications Omeprazole (OMEPRAZOLE) 20 Mg Capsule., 1 CAP PO HS, CAP 03/25/19 Pantoprazole Sodium (PANTOPRAZOLE SODIUM) 40 Mg Tablet., 40 MG PO QDAY, TAB.SR 02/12/19 Past Medical/Surgical History Past medical history for GI bleed status post colonoscopy removal of polyp. Hx Smoking: No Smoking Status: Never Smoker Hx Substance Use Disorder: No Hx Alcohol Use: No Constitutional Vital Sign - Last 24 Hours 05/21/19 05/21/19 15:44 18:29 Temp 98.1 Pulse 93 78 Resp 21 20 B/P (MAP) 141/84 125/74 (91) Pulse Ox 95 98 O2 Delivery Room Air Room Air Physical Exam General Appearance: The patient is alert, has no immediate need for airway pr otection and no signs of toxicity. [ ] Eyes: Pupils equal and round no pallor or injection. ENT, Mouth: Mucous membranes are moist. Respiratory: There are no retractions, lungs are clear to auscultation. Cardiovascular: Regular rate and rhythm. Gastrointestinal: Abdomen is soft and non tender, no masses, bowel sounds normal. Neurological: alert and oriented, no focal neurological deficits. Cremasteric reflex intact : no scrotal edema, testicles appropriate size without tenderness to palpation Skin: Warm and dry, no rashes. Musculoskeletal: Neck is supple non tender. Extremities are nontender, nonswollen and have full range of motion. Medical Decision Making Data Points Result Diagram: 05/21/19 1638 05/21/19 1638 Laboratory Hematology Test 05/21/19 16:38 White Blood Count 7.8 k/uL (4.5-11.0) Red Blood Count 5.55 M/uL (4.00-5.60) Hemoglobin 17.7 g/dL (14.0-18.0) Hematocrit 48.8 % (42.0-52.0) Mean Corpuscular Volume 87.9 fL (80.0-96.0) Mean Corpuscular Hemoglobin 31.9 pg (26.0-33.0) Mean Corpuscular Hemoglobin Concent 36.3 g/dL (32.0-36.0) H Red Cell Distribution Width 12.7 % (11.5-14.5) Platelet Count 254 K/uL (150-450) Mean Platelet Volume 10.0 fL (7.2-11.1) Neutrophils (%) (Auto) 59.9 % (39.4-72.5) Lymphocytes (%) (Auto) 30.3 % (17.6-49.6) Monocytes (%) (Auto) 8.1 % (4.1-12.4) Eosinophils (%) (Auto) 1.3 % (0.4-6.7) Basophils (%) (Auto) 0.4 % (0.3-1.4) Nucleated RBC Relative Count (auto) 0.1 /100WBC Neutrophils # (Auto) 4.7 K/uL (2.0-7.4) Lymphocytes # (Auto) 2.4 K/uL (1.3-3.6) Monocytes # (Auto) 0.6 K/uL (0.3-1.0) Eosinophils # (Auto) 0.1 K/uL (0.0-0.5) Basophils # (Auto) 0.0 K/uL (0.0-0.1) Nucleated RBC Absolute Count (auto) 0.01 K/uL Chemistry Test 05/21/19 16:38 Sodium Level 138 mmol/L (137-145) Potassium Level 3.8 mmol/L (3.5-5.0) Chloride Level 105 mmol/L (98-107) Carbon Dioxide Level 21 mmol/L (22-30) Blood Urea Nitrogen 12 mg/dl (9-21) Creatinine 1.10 mg/dl (0.66-1.25) Glomerular Filtration Rate Calc > 60.0 Random Glucose 96 mg/dl (75-110) Calcium Level 9.1 mg/dl (8.4-10.2) Urinalysis Test 05/21/19 15:37 Urine Color Yellow Urine Clarity Clear Urine pH 8.0 pH (4.8-9.5) Urine Specific [place] 1.013 Urine Protein Negative mg/dL (NEGATIVE) Urine Glucose (UA) Negative mg/dL (NEGATIVE) Urine Ketones Negative mg/dL (NEGATIVE) Urine Blood Negative (NEGATIVE) Urine Nitrite Negative (NEGATIVE) Urine Bilirubin Negative (NEGATIVE) Urine Urobilinogen Negative mg/dL (0.2-1.9) Urine Leukocyte Esterase Negative (NEGATIVE) Urine RBC None /HPF (0-2/HPF) Urine WBC <1 /HPF (0-5/HPF) Urine Squamous Epithelial Cells None /LPF (</=FEW) Urine Bacteria Negative /HPF (NONE-FEW) Urine Mucus None /HPF (NONE-FEW) EKG/Imaging Imaging [place] [facility] [place] NAME: Jani Amaral : 1990 MR: [id number] V: [id number] EXAM DATE: ORDERING PHYSICIAN: FLORENCIA IZQUIERDO TECHNOLOGIST: Location: [facility] Patient: Jani Amaral : 1990 Visit/Account:[id number] Date of Sevice: 05/21/2019 CT ABDOMEN PELVIS W/ CON HISTORY: Left groin pain TECHNIQUE: Axial images were obtained through the abdomen and pelvis with intravenous contrast . One of the following dose optimization techniques was utilized in the performance of this exam: automated exposure control; adjustment of the mA and/or kv according to patient size; or use of iterative reconstruction technique. Specific details can be referenced in the facility's radiology CT exam operational policy. CONTRAST: 75 cc of Isovue-370 COMPARISON: CT abdomen/pelvis 02/12/2019 FINDINGS: Visualized lung bases: Negative. Hepatobiliary: Negative. Spleen: Negative. Adrenals: Stable 1.6 x 1.1 cm right adrenal gland nodule, likely an adenoma. Left adrenal is normal. Pancreas: Negative. Kidneys/ureters/bladder: Stable 1.2 x 0.9 cm simple cyst at the midpole the left kidney. No hydronephrosis. Bowel/peritoneum/mesentery: Normal appendix. No bowel obstruction, free air or ascites. Vessels: Negative. Lymph nodes: Negative. Pelvic genitourinary: Negative. Bones/body wall: Negative. Other findings: None significant IMPRESSION: 1. No acute inflammatory process within the abdomen or pelvis. 2. Stable 1.6 x 1.1 cm right adrenal gland nodule, likely an adenoma. Please refer to ACR guidelines below. ACR recommendations for incidental adrenal nodule with benign features (homogeneous, low density, smooth margins)without definite CT/MRI features of adenoma or other benign lesion: Adrenal nodule 1-4 cm: -Prior imaging available = Obtain prior CT or MRI and issue addendum. If stable for greater than 1 year indicates a benign nodule. If enlarging, recommend biopsy or resection. -No prior imaging and no history of malignancy = Obtain follow up non-contrast CT (adrenal mass protocol) in 1 year. In stable, presume benign. -History of malignancy = Non contrast MRI or non-contrast CT (adrenal mass protocol). If greater than 10 HU, proceed to CT without and with contrast ( adrenal washout CT). If still not an adenoma proceed to biopsy. Adrenal nodule >4 cm -No history of malignancy: Consider resection -History of malignancy: PET/CT or biopsy Report Dictated By: Sandro Jones MD at 05/21/2019 5:10 PM Report E-Signed By: Sandro Jones MD at 05/21/2019 5:16 PM WSN:[id number] [place] [facility] [place]IENT NAME: Jani Amaral : 1990 MR: [id number] V: [id number] EXAM DATE: ORDERING PHYSICIAN: FLORENCIA IZQUIERDO TECHNOLOGIST: Location: [facility] Patient: Jani Amaral : 1990 Visit/Account:[id number] Date of Sevice: 05/21/2019 TESTICULAR HISTORY: Right groin pain COMPARISON: March 13, 2019 FINDINGS: Testes: Right testicle measures 5.2 x 2.3 x 3.4 centers. Multiple small calcifications are identified in the right testicle similar to the prior study. Left testicle measures 5. 2 x 2 by 3.7 cm Symmetric and unremarkable blood flow documented by color and Duplex Doppler ultrasound. Epididymides: Head epididymis on the right measures 1.2 centers in diameter and on the left 1.5 cm Blood flow is unremarkable in each epididymis by color Doppler ultrasound. Hydrocele: None. Varicocele: None. Multiple images were obtained in both inguinal regions with Valsalva maneuver suggesting small bilateral inguinal hernias IMPRESSION: Multiple small calcifications are again identified within the right testicle similar to the prior study consider follow-up imaging in 12 months. Possible small bilateral inguinal hernias Report Dictated By: Angela Joyce MD at 05/21/2019 5:42 PM Report E-Signed By: Angela Joyce MD at 05/21/2019 5:46 PM WSN:[email or web address] ED Course/Re-evaluation ED Course DIFFERENTIAL DIAGNOSIS: After history and physical exam differential diagnosis was considered for inguinal hernia, epidydimitis, testicular torsion, nephrolithiasis, vs UTI Decision to Disposition Date: May 21, 2019 Decision to Disposition Time: 17:54 Depart Departure Latest Vital Signs Vital Signs Date Time Temp Pulse Resp B/P (MAP) Pulse Ox O2 Delivery O2 Flow Rate FiO2 05/21/19 18:29 78 20 125/74 (91) 98 Room Air 05/21/19 15:44 98.1 Impression: Primary Impression: Inguinal hernia bilateral, non-recurrent Condition: Improved Disposition: HOME OR SELF-CARE Referrals: JOSAFAT MOORE 1 Week New Scripts Hydrocodone Bit/Acetaminophen (HYDROCODON-ACETAMINOPHEN 5-325) 1 Each Tablet 1 EACH PO Q4H for PAIN, #12 TAB 0 Refills Prov: FLORENCIA IZQUIERDO MD 05/21/19 Patient Instructions: Inguinal Hernia (ED) Problem Qualifiers Primary Impression: Inguinal hernia bilateral, non-recurrent Obstruction and gangrene presence: without obstruction or gangrene Recurrence: not specified as recurrent Qualified Codes: K40.20 - Bilateral inguinal hernia, without obstruction or gangrene, not specified as recurrent FLORENCIA IZQUIERDO MD May 21, 2019 16:25
[2019-05-21] MEDS ORDERED: IOPAMIDOL 76% 100 ML INFUS BTL 100 ML ONE (16:40)
[2019-05-21 16:59] LABS: PLATELET COUNT, AUTOMATED 254 K/uL (150-450)
--- NOTE | 2019-05-21 17:24 | RADIOLOGY IMAGING REPORT ---
[place] [facility] [place] Jani Amaral : 1990 MR: [id number] V: [id number] EXAM DATE: ORDERING PHYSICIAN: FLORENCIA IZQUIERDO TECHNOLOGIST: Location: [facility] Patient: Jani Amaral : 1990 Visit/Account:[id number] Date of Sevice: 05/21/2019 CT ABDOMEN PELVIS W/ CON HISTORY: Left groin pain TECHNIQUE: Axial images were obtained through the abdomen and pelvis with intravenous contrast . One of the following dose optimization techniques was utilized in the performance of this exam: automate d exposure control; adjustment of the mA and/or kv according to patient size; or use of iterative rec onstruction technique. Specific details can be referenced in the facility's radiology CT exam operati onal policy. CONTRAST: 75 cc of Isovue-370 COMPARISON: CT abdomen/pelvis 02/12/2019 FINDINGS: Visualized lung bases: Negative. Hepatobiliary: Negative. Spleen: Negative. Adrenals: Stable 1.6 x 1.1 cm right adrenal gland nodule, likely an adenoma. Left adrenal is normal. Pancreas: Negative. Kidneys/ureters/bladder: Stable 1.2 x 0.9 cm simple cyst at the midpole the left kidney. No hydronep hrosis. Bowel/peritoneum/mesentery: Normal appendix. No bowel obstruction, free air or ascites. Vessels: Negative. Lymph nodes: Negative. Pelvic genitourinary: Negative. Bones/body wall: Negative. Other findings: None significant IMPRESSION: 1. No acute inflammatory process within the abdomen or pelvis. 2. Stable 1.6 x 1.1 cm right adrenal gland nodule, likely an adenoma. Please refer to ACR guidelines below. ACR recommendations for incidental adrenal nodule with benign features (homogeneous, low density, smo oth margins)without definite CT/MRI features of adenoma or other benign lesion: Adrenal nodule 1-4 cm: -Prior imaging available = Obtain prior CT or MRI and issue addendum. If stable for greater than 1 ye ar indicates a benign nodule. If enlarging, recommend biopsy or resection. -No prior imaging and no history of malignancy = Obtain follow up non-contrast CT (adrenal mass ginette col) in 1 year. In stable, presume benign. -History of malignancy = Non contrast MRI or non-contrast CT (adrenal mass protocol). If greater than 10 HU, proceed to CT without and with contrast (adrenal washout CT). If still not an adenoma proceed to biopsy. Adrenal nodule >4 cm -No history of malignancy: Consider resection -History of malignancy: PET/CT or biopsy Report Dictated By: Sandro Jones MD at 05/21/2019 5:10 PM Report E-Signed By: Sandro Jones MD at 05/21/2019 5:16 PM WSN:[id number]
--- NOTE | 2019-05-21 17:54 | RADIOLOGY IMAGING REPORT ---
FACILITY: [facility] PATIENT NAME: Jani Amaral : 1990 MR: [id number] V: [id number] EXAM DATE: ORDERING PHYSICIAN: FLORENCIA IZQUIERDO TECHNOLOGIST: Location: [facility] [place] Patient: Jani Amaral : 1990 Visit/Account:[id number] Date of Sevice: 05/21/2019 TESTICULAR HISTORY: Right groin pain COMPARISON: March 13, 2019 FINDINGS: Testes: Right testicle measures 5.2 x 2.3 x 3.4 centers. Multiple small calcifications are identifie d in the right testicle similar to the prior study. Left testicle measures 5. 2 x 2 by 3.7 cm Symmetric and unremarkable blood flow documented by color and Duplex Doppler ultrasound. Epididymides: Head epididymis on the right measures 1.2 centers in diameter and on the left 1.5 cm B lood flow is unremarkable in each epididymis by color Doppler ultrasound. Hydrocele: None. Varicocele: None. Multiple images were obtained in both inguinal regions with Valsalva maneuver suggesting small bilate ral inguinal hernias IMPRESSION: Multiple small calcifications are again identified within the right testicle similar to the prior sobia dy consider follow-up imaging in 12 months. Possible small bilateral inguinal hernias Report Dictated By: Angela Joyce MD at 05/21/2019 5:42 PM Report E-Signed By: Angela Joyce MD at 05/21/2019 5:46 PM WSN:[email or web address]
[2019-05-21] MEDS ORDERED: HYDR-385 PO (18:06)
[2019-05-21 18:29] VITALS: BP 125/74
== END 2019-05-21 18:31 | disposition home or self-care (01) ==
LOC: ER 15:41
DX: K40.20 Bilateral inguinal hernia, without obstruction or gangrene, not specified as recurrent (principal)
CPT/HCPCS: 74177; 76870; 81001; 85025; 96374; 99284; J1885; Q9967; 82310; 82374; 82435; 82565; 82947; 84132; 84295; 84520